=== PATIENT | female | born 1990 | race Caucasian/White ===

== ENCOUNTER → 2017-03-08 | Outpatient (CLI) | payer BC, MEDICAID | LOC: MW.CHOBGYN 16:41 | PROVIDERS: ATTEND Obstetrics & Gynecology | DX: Z34.90 Encounter for supervision of normal pregnancy, unspecified, unspecified trimester (principal) ==

== ENCOUNTER → 2017-03-09 | Outpatient (CLI) | payer BC, MEDICAID | LOC: MW.CHOBGYN 16:26 | PROVIDERS: ATTEND Obstetrics & Gynecology | DX: Z34.90 Encounter for supervision of normal pregnancy, unspecified, unspecified trimester (principal) | CPT/HCPCS: 81003 ==

== ENCOUNTER 2017-03-17 16:08 | Outpatient (CLI) | payer BC, MEDICAID | END 2017-03-17 17:19 | disposition home or self-care (01) | LOC: MW.OBCHECK 16:08 → MW.OB 16:25 → MW.OBCHECK 17:19 | PROVIDERS: ATTEND Obstetrics & Gynecology | DX: Z34.90 Encounter for supervision of normal pregnancy, unspecified, unspecified trimester (principal) | CPT/HCPCS: 59025 ==

== ENCOUNTER 2017-03-19 23:57 | Inpatient (IN) | payer BC, MEDICAID ==
[2017-03-20] MEDS ORDERED: Lidocaine 1% 50 ML MDV INJECT PRN (00:06)
[2017-03-20] MEDS ORDERED: Methylergonovine 0.2 MG/1 ML Amp IM PRN (00:06)
[2017-03-20] MEDS ORDERED: Nalbuphine 10 MG/1 ML Vial IVPUSH PRN (00:06)
[2017-03-20] MEDS ORDERED: Sodium Chloride 0.9% 10 ML Syringe FLUSH PRN (00:06)
[2017-03-20] MEDS ORDERED: Carboprost Tromethamine 250 MCG/1 ML Amp IM PRN (00:06)
[2017-03-20] MEDS ORDERED: Sodium Chloride 0.9% 2.5 ML Syringe FLUSH PRN (00:06)
[2017-03-20] MEDS ORDERED: Butorphanol 1 MG/ML SDV IVPUSH PRN (00:06)
[2017-03-20] MEDS ORDERED: Misoprostol 200 MCG Tab PO PRN (00:06)
[2017-03-20] MEDS ORDERED: Water For Irrigation,Sterile 1,000 ML Container IRR PRN (00:06)
[2017-03-20] MEDS ORDERED: Terbutaline 1 MG/ML SDV SUBCUT PRN (00:06)
[2017-03-20] MEDS ORDERED: Oxytocin/Lactated Ringers 30 UNIT/500 ML BAG IV SCH (00:15)
[2017-03-20] MEDS ORDERED: Misoprostol 25 MCG (1/4 of 100 MCG) Tab PO SCH (00:30)
[2017-03-20] MEDS ORDERED: Misoprostol 25 MCG (1/4 of 100 MCG) Tab VAG SCH (00:30)
[2017-03-20] MEDS: Lactated Ringers 1,000 ML IV SCH ×4 (00:45→22:41)
[2017-03-20] MEDS ORDERED: Misoprostol 25 MCG (1/4 of 100 MCG) Tab PO PRN (04:30)
[2017-03-20] MEDS ORDERED: Misoprostol 25 MCG (1/4 of 100 MCG) Tab VAG PRN (04:30)
--- NOTE | 2017-03-20 09:02 | PCM.LDHP ---
L&D History of Present Illness - General Date of Service: 03/20/17 Admit Problem/Dx: Patient Status Order with Admit Dx/Problem 03/20/17 00:06 Patient Status [ADT] Routine Admission Diagnosis/Problem Admission Diagnosis/Problem Source of Information: Patient History Limitations: Reports: No limitations - History of Present Illness Pain Score: 11 Improves with: Reports: None Worsens with: Reports: None Associated Symptoms: Reports: N - Related Data Allergies/Adverse Reactions: Allergies Allergy/AdvReac Type Severity Reaction Status Date / Time No Known Allergies Allergy Verified 03/17/17 17:08 Past Medical History Genitourinary History: Reports: Renal calculus 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: - Infectious Disease History Infectious Disease History: Reports: None Social & Family History - Family History Family Medical History: Unobtainable - Tobacco Use Smoking Status *Q: Never Smoker Second Hand Smoke Exposure: No - Caffeine Use Caffeine Use: Reports: Coffee - Recreational Drug Use Recreational Drug Use: No H&P Review of Systems - Review of Systems: Review Of Systems: See Below General: Reports: no symptoms HEENT: Reports: no symptoms Pulmonary: Reports: No Symptoms Cardiovascular: Reports: no symptoms Gastrointestinal: Reports: No symptoms Genitourinary: Reports: no symptoms Musculoskeletal: Reports: no symptoms Skin: Reports: no symptoms Psychiatric: Reports: no symptoms Neurological: Reports: No Symptoms Hematologic/Lymphatic: Reports: no symptoms Immunologic: Reports: no symptoms L&D Exam - Exam Exam: See Below - Vital Signs Weight: 105.233 kg - OB Specific Contraction Intensity: Moderate movement: active heart tones: present Presentation: Vertex - Rodríguez Score Rodríguez Score Effacement: 51-70% Rodríguez Score Dilation: 3-4 cm Rodríguez Score 's Station: -1 ,0 - Patient Data Lab Results last 24 hrs: Laboratory Results - last 24 hr 03/20/17 03/20/17 Range/Units 00:43 00:43 WBC 12.39 H (4.0-11.0) K/uL RBC 3.92 L (4.30-5.90) M/uL Hgb 12.2 (12.0-16.0) g/dL Hct 36.0 (36.0-46.0) % MCV 91.8 (80.0-98.0) fL MCH 31.1 (27.0-32.0) pg MCHC 33.9 (31.0-37.0) g/dL RDW Std Deviation 43.9 (28.0-62.0) fl RDW Coeff of Bettie 14 (11.0-15.0) % Plt Count 188 (150-400) K/uL MPV 11.10 (7.40-12.00) fL Blood Type A POSITIVE Antibody Screen NEGATIVE Result Diagrams: 03/20/17 00:43 Problem List Initiated/Reviewed/Updated: Yes Orders Last 24hrs: Active Orders 24 hr Category Date Time Status Patient Status [ADT] Routine ADT 03/20/17 00:06 Active Bedrest Bathroom Privileges [RC] ASDIRECTED Care 03/20/17 00:06 Active Communication Order [RC] ASDIRECTED Care 03/20/17 00:06 Active Communication Order [RC] ASDIRECTED Care 03/20/17 00:06 Active Communication Order [RC] ASDIRECTED Care 03/20/17 00:06 Active Heart Tones [RC] CONTINUOUS Care 03/20/17 00:06 Active Non Stress Test [RC] PER UNIT ROUTINE Care 03/20/17 00:06 Active May Shower [RC] ASDIRECTED Care 03/20/17 00:06 Active Notify Provider [RC] PRN Care 03/20/17 00:06 Active Notify Provider [RC] PRN Care 03/20/17 00:06 Active Notify Provider [RC] PRN Care 03/20/17 00:06 Active Notify Provider [RC] STAT Care 03/20/17 00:06 Active Oxygen Therapy [RC] ASDIRECTED Care 03/20/17 00:06 Active Peripheral IV Care [RC] . DIRECTED Care 03/20/17 00:06 Active Up ad Jodie [RC] ASDIRECTED Care 03/20/17 00:06 Active Vaginal Exam [RC] PRN Care 03/20/17 00:06 Active Vital Signs [RC] PER UNIT ROUTINE Care 03/20/17 00:06 Active Clear Liquid Diet [DIET] Diet 03/20/17 Breakfast Active Butorphanol [Stadol] Med 03/20/17 00:06 Active 1 mg IVPUSH ASDIRECTED PRN Carboprost Tromethamine [Hemabate DS] Med 03/20/17 00:06 Active 250 mcg IM ASDIRECTED PRN Lactated Ringers [Ringers, Lactated] 1,000 ml Med 03/20/17 00:15 Active IV ASDIRECTED Lidocaine 1% [Xylocaine 1%] Med 03/20/17 00:06 Active 50 ml INJECT .ONCE PRN Methylergonovine [Methergine] Med 03/20/17 00:06 Active 0.2 mg IM ASDIRECTED PRN Misoprostol [Cytotec] Med 03/20/17 00:06 Active 200 mcg PO .ONCE PRN Misoprostol [Cytotec] Med 03/20/17 00:30 Active 25 mcg PO .ONCE Misoprostol [Cytotec] Med 03/20/17 04:30 Active 25 mcg PO Q4H PRN Misoprostol [Cytotec] Med 03/20/17 00:30 Active 25 mcg VAG .ONCE Misoprostol [Cytotec] Med 03/20/17 04:30 Active 25 mcg VAG Q4H PRN Nalbuphine [Nubain] Med 03/20/17 00:06 Active 10 mg IVPUSH ASDIRECTED PRN Sodium Chloride 0.9% [Saline Flush] Med 03/20/17 00:06 Active 10 ml FLUSH ASDIRECTED PRN Sodium Chloride 0.9% [Saline Flush] Med 03/20/17 00:06 Active 2.5 ml FLUSH ASDIRECTED PRN Terbutaline [Brethine] Med 03/20/17 00:06 Active 0.25 mg SUBCUT ASDIRECTED PRN Water For Irrigation,Sterile [Sterile Water for Med 03/20/17 00:06 Active Irrigation] 1,000 ml IRR ASDIRECTED PRN Scalp Electrode [WOMSER] Per Unit Routine Oth 03/20/17 00:06 Ordered Medication Administration Instruction [OM.PC] Q3H Oth 03/20/17 00:15 Ordered Peripheral IV Insertion Adult [OM.PC] Routine Oth 03/20/17 00:06 Ordered Resuscitation Status Routine Resus Stat 03/20/17 00:06 Ordered Medication Orders Butorphanol Tartrate (Stadol) 1 mg IVPUSH ASDIRECTED PRN PRN Reason: Pain Last Admin: 03/20/17 08:57 Dose: 1 mg Carboprost Tromethamine (Hemabate Ds) 250 mcg IM ASDIRECTED PRN PRN Reason: Post Hemorrhage Lactated Ringer's (Ringers, Lactated) 1,000 mls @ 150 mls/hr IV ASDIRECTED [facility] Last Admin: 03/20/17 00:45 Dose: 150 mls/hr Lidocaine HCl (Xylocaine 1%) 50 ml INJECT .ONCE PRN PRN Reason: Laceration repair Methylergonovine Maleate (Methergine) 0.2 mg IM ASDIRECTED PRN PRN Reason: Post Hemorrhage Misoprostol (Cytotec) 200 mcg PO .ONCE PRN PRN Reason: Post Hemorrhage Misoprostol (Cytotec) 25 mcg VAG .ONCE [facility] Last Admin: 03/20/17 01:02 Dose: 25 mcg Misoprostol (Cytotec) 25 mcg VAG Q4H PRN PRN Reason: Cervical Ripening Stop: 03/21/17 08:31 Misoprostol (Cytotec) 25 mcg PO .ONCE [facility] Last Admin: 03/20/17 01:01 Dose: 25 mcg Misoprostol (Cytotec) 25 mcg PO Q4H PRN PRN Reason: Cervical Ripening Stop: 03/21/17 08:31 Nalbuphine HCl (Nubain) 10 mg IVPUSH ASDIRECTED PRN PRN Reason: Pain (severe 7-10) Stop: 03/22/17 00:07 Sodium Chloride (Saline Flush) 10 ml FLUSH ASDIRECTED PRN PRN Reason: Keep Vein Open Sodium Chloride (Saline Flush) 2.5 ml FLUSH ASDIRECTED PRN PRN Reason: Keep Vein Open Sterile Water (Sterile Water For Irrigation) 1,000 ml IRR ASDIRECTED PRN PRN Reason: delivery Terbutaline Sulfate (Brethine) 0.25 mg SUBCUT ASDIRECTED PRN PRN Reason: Tacysystole Assessment/Plan Comment:: Term in early labor.
[2017-03-20] MEDS ORDERED: Oxytocin/Lactated Ringers 30 UNIT/500 ML BAG ONE (10:13)
[2017-03-20] MEDS ORDERED: Ropivacaine HCl/PF 100 ML ONE ×2 (10:22→19:09)
[2017-03-20] MEDS ORDERED: fentaNYL 100 MCG/2 ML SDV ONE ×2 (10:22→19:09)
[2017-03-20] MEDS ORDERED: Ropivacaine 0.2% 2 MG/ML 20 ML SDV ONE (10:22)
--- NOTE | 2017-03-20 11:04 | PCM.PREANE ---
Preanesthetic Assessment - Anesthesia/Transfusion/Family Hx Anesthesia History: Prior Anesthesia Without Reaction Family History of Anesthesia Reaction: No - Review of Systems Other: Reports: None - Physical Assessment Height: 5 ft 2 in Weight: 105.233 kg ASA Class: 2 Mental Status: Alert & Oriented x3 Airway Class: Mallampati = 1 Dentition: Reports: Normal Dentition Thyro-Mental Finger Breadths: 3 Mouth Opening Finger Breadths: 3 ROM/Head Extension: Full - Lab Values: Laboratory Last Values WBC 12.39 K/uL (4.0-11.0) H 03/20/17 00:43 RBC 3.92 M/uL (4.30-5.90) L 03/20/17 00:43 Hgb 12.2 g/dL (12.0-16.0) 03/20/17 00:43 Hct 36.0 % (36.0-46.0) 03/20/17 00:43 MCV 91.8 fL (80.0-98.0) 03/20/17 00:43 MCH 31.1 pg (27.0-32.0) 03/20/17 00:43 MCHC 33.9 g/dL (31.0-37.0) 04 00:43 RDW Std Deviation 43.9 fl (28.0-62.0) 03/20/17 00:43 RDW Coeff of Bettie 14 % (11.0-15.0) 03/20/17 00:43 Plt Count 188 K/uL (150-400) 03/20/17 00:43 MPV 11.10 fL (7.40-12.00) 03/20/17 00:43 Blood Type A POSITIVE 03/20/17 00:43 Antibody Screen NEGATIVE 03/20/17 00:43 - Allergies Allergies/Adverse Reactions: Allergies Allergy/AdvReac Type Severity Reaction Status Date / Time No Known Allergies Allergy Verified 03/17/17 17:08 - Blood Blood Available: Yes Product(s) Available: PRBC - Acknowledgements Anesthesia Type Planned: Epidural Pt an Appropriate Candidate for the Planned Anesthesia: Yes Alternatives and Risks of Anesthesia Discussed w Pt/Guardian: Yes Pt/Guardian Understands and Agrees with Anesthesia Plan: Yes PreAnesthesia Questionnaire Genitourinary History: Reports: Renal calculus 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: - Infectious Disease History Infectious Disease History: Reports: None - SUBSTANCE USE Smoking Status *Q: Never Smoker Second Hand Smoke Exposure: No Recreational Drug Use History: No - CURRENT (IN HOUSE) MEDS Current Meds: Current Medications Butorphanol Tartrate (Stadol) 1 mg IVPUSH ASDIRECTED PRN PRN Reason: Pain Last Admin: 03/20/17 08:57 Dose: 1 mg Carboprost Tromethamine (Hemabate Ds) 250 mcg IM ASDIRECTED PRN PRN Reason: Post Hemorrhage Lactated Ringer's (Ringers, Lactated) 1,000 mls @ 150 mls/hr IV ASDIRECTED NAYELI Last Admin: 03/20/17 10:16 Dose: 150 mls/hr Lidocaine HCl (Xylocaine 1%) 50 ml INJECT .ONCE PRN PRN Reason: Laceration repair Methylergonovine Maleate (Methergine) 0.2 mg IM ASDIRECTED PRN PRN Reason: Post Hemorrhage Misoprostol (Cytotec) 200 mcg PO .ONCE PRN PRN Reason: Post Hemorrhage Misoprostol (Cytotec) 25 mcg VAG .ONCE [facility] Last Admin: 03/20/17 01:02 Dose: 25 mcg Misoprostol (Cytotec) 25 mcg VAG Q4H PRN PRN Reason: Cervical Ripening Stop: 03/21/17 08:31 Misoprostol (Cytotec) 25 mcg PO .ONCE [facility] Last Admin: 03/20/17 01:01 Dose: 25 mcg Misoprostol (Cytotec) 25 mcg PO Q4H PRN PRN Reason: Cervical Ripening Stop: 03/21/17 08:31 Nalbuphine HCl (Nubain) 10 mg IVPUSH ASDIRECTED PRN PRN Reason: Pain (severe 7-10) Stop: 03/22/17 00:07 Sodium Chloride (Saline Flush) 10 ml FLUSH ASDIRECTED PRN PRN Reason: Keep Vein Open Sodium Chloride (Saline Flush) 2.5 ml FLUSH ASDIRECTED PRN PRN Reason: Keep Vein Open Sterile Water (Sterile Water For Irrigation) 1,000 ml IRR ASDIRECTED PRN PRN Reason: delivery Terbutaline Sulfate (Brethine) 0.25 mg SUBCUT ASDIRECTED PRN PRN Reason: Tacysystole Discontinued Medications Fentanyl (Sublimaze) Confirm Administered Dose 200 mcg .ROUTE .STK-MED ONE Stop: 03/20/17 10:23 Oxytocin/Lactated Ringer's (Pitocin In Lr 30 Units/500 Ml) 30 unit in 500 mls @ 500 mls/hr IV TITRATE NAYELI PRN Reason: 500 MUNITS/MIN Stop: 03/20/17 01:14 Oxytocin/Lactated Ringer's (Pitocin In Lr 30 Units/500 Ml) Confirm Administered Dose 30 unit in 500 mls @ as directed .ROUTE .STK-MED ONE Stop: 03/20/17 10:14 Ropivacaine (Naropin 0.2%) Confirm Administered Dose 100 mls @ as directed .ROUTE .STK-MED ONE Stop: 03/20/17 10:23 Ropivacaine (Naropin 0.2%) Confirm Administered Dose 20 ml .ROUTE .STK-MED ONE Stop: 03/20/17 10:23
[2017-03-20] MEDS ORDERED: Bupivacaine 0.5% 10 ML SDV ONE (22:41)
[2017-03-20] MEDS ORDERED: oxyCODONE 5 MG Tab PO PRN (23:42)
[2017-03-20] MEDS ORDERED: Lanolin 100% Cream 7 GM Tube TOP PRN (23:42)
[2017-03-20] MEDS ORDERED: Bisacodyl 10 MG Supp RECTAL PRN (23:42)
[2017-03-20] MEDS ORDERED: Benzocaine/Menthol 20%-0.5% Spray 78 GM Cannister TOP PRN (23:42)
[2017-03-20] MEDS ORDERED: Ibuprofen 400 MG Tab PO PRN (23:42)
[2017-03-20] MEDS ORDERED: Ibuprofen 800 MG Tab PO PRN (23:42)
[2017-03-20] MEDS ORDERED: Witch Hazel Medicated Pads 40/Jar TOP PRN (23:42)
[2017-03-20] MEDS ORDERED: Acetaminophen 500 MG Tab PO PRN ×2 (23:42)
[2017-03-20] MEDS ORDERED: Docusate Sodium 100 MG Cap PO PRN (23:42)
[2017-03-21] MEDS ORDERED: Furosemide 40 MG/4 ML VIAL IVPUSH ONE (00:02)
[2017-03-21 07:59] VITALS: BP 134/77
--- NOTE | 2017-03-21 11:22 | PCM.PNPP ---
- General Info Date of Service: 03/21/17 Functional Status: Reports: pain controlled - Review of Systems General: Reports: No Symptoms HEENT: Reports: no symptoms Pulmonary: Reports: no symptoms Cardiovascular: Reports: No Symptoms Gastrointestinal: Reports: No symptoms Genitourinary: Reports: no symptoms Musculoskeletal: Reports: no symptoms Skin: Reports: no symptoms Neurological: Reports: No Symptoms Psychiatric: Reports: no symptoms - General Info Date of Service: 03/21/17 - Patient Data Vital Signs - most recent: Last Vital Signs Temp 36.5 C 03/21/17 10:55 Pulse 115 H 03/21/17 07:58 Resp 18 03/21/17 07:58 BP 134/77 03/21/17 07:58 Pulse Ox 96 03/21/17 05:17 Weight - most recent: 105.233 kg I&O - last 24 hours: Intake & Output 03/20/17 03/21/17 03/21/17 22:59 06:59 14:59 Output Total 1925 Balance -1925 Lab Results - last 24 hrs: Laboratory Results - last 24 hr 03/21/17 Range/Units 06:00 Hgb 10.8 L (12.0-16.0) g/dL Hct 31.9 L (36.0-46.0) % Med Orders - Current: Current Medications Acetaminophen (Tylenol Extra Strength) 500 mg PO Q4H PRN PRN Reason: Pain Acetaminophen (Tylenol Extra Strength) 1,000 mg PO Q4H PRN PRN Reason: Pain Benzocaine/Menthol (Dermoplast Pain Relief 20%-0.5% [place]) 0 gm TOP ASDIRECTED PRN PRN Reason: Perineal Comfort Measure Last Admin: 03/21/17 08:18 Dose: 1 can Bisacodyl (Dulcolax) 10 mg RECTAL .ONCE PRN PRN Reason: Constipation Butorphanol Tartrate (Stadol) 1 mg IVPUSH ASDIRECTED PRN PRN Reason: Pain Last Admin: 03/20/17 08:57 Dose: 1 mg Carboprost Tromethamine (Hemabate Ds) 250 mcg IM ASDIRECTED PRN PRN Reason: Post Hemorrhage Docusate Sodium (Colace) 100 mg PO BID PRN PRN Reason: Constipation Emollient Ointment (Lansinoh Hpa) 0 gm TOP ASDIRECTED PRN PRN Reason: Sore Nipples Lactated Ringer's (Ringers, Lactated) 1,000 mls @ 150 mls/hr IV ASDIRECTED NAYELI Last Admin: 03/20/17 22:41 Dose: 150 mls/hr Ibuprofen (Motrin) 400 mg PO Q4H PRN PRN Reason: Pain Ibuprofen (Motrin) 800 mg PO Q6H PRN PRN Reason: Pain Last Admin: 03/21/17 08:11 Dose: 800 mg Lidocaine HCl (Xylocaine 1%) 50 ml INJECT .ONCE PRN PRN Reason: Laceration repair Methylergonovine Maleate (Methergine) 0.2 mg IM ASDIRECTED PRN PRN Reason: Post Hemorrhage Misoprostol (Cytotec) 200 mcg PO .ONCE PRN PRN Reason: Post Hemorrhage Misoprostol (Cytotec) 25 mcg VAG .ONCE [facility] Last Admin: 03/20/17 01:02 Dose: 25 mcg Misoprostol (Cytotec) 25 mcg PO .ONCE [facility] Last Admin: 03/20/17 01:01 Dose: 25 mcg Nalbuphine HCl (Nubain) 10 mg IVPUSH ASDIRECTED PRN PRN Reason: Pain (severe 7-10) Stop: 03/22/17 00:07 Oxycodone HCl (Oxycodone) 5 mg PO Q2H PRN PRN Reason: Pain Sodium Chloride (Saline Flush) 10 ml FLUSH ASDIRECTED PRN PRN Reason: Keep Vein Open Sodium Chloride (Saline Flush) 2.5 ml FLUSH ASDIRECTED PRN PRN Reason: Keep Vein Open Sterile Water (Sterile Water For Irrigation) 1,000 ml IRR ASDIRECTED PRN PRN Reason: delivery Last Admin: 03/20/17 23:52 Dose: 1,000 ml Terbutaline Sulfate (Brethine) 0.25 mg SUBCUT ASDIRECTED PRN PRN Reason: Tacysystole [place] (Tucks) 1 pad TOP ASDIRECTED PRN PRN Reason: comfort care Discontinued Medications Bupivacaine HCl (Sensorcaine-Mpf 0.5%) Confirm Administered Dose 20 ml .ROUTE .STK-MED ONE Stop: 03/20/17 22:42 Fentanyl (Sublimaze) Confirm Administered Dose 200 mcg .ROUTE .STK-MED ONE Stop: 03/20/17 10:23 Fentanyl (Sublimaze) Confirm Administered Dose 200 mcg .ROUTE .STK-MED ONE Stop: 03/20/17 19:10 Furosemide (Lasix) 40 mg IVPUSH NOW ONE Stop: 03/21/17 00:03 Last Admin: 03/21/17 00:37 Dose: 40 mg Oxytocin/Lactated Ringer's (Pitocin In Lr 30 Units/500 Ml) 30 unit in 500 mls @ 500 mls/hr IV TITRATE NAYELI PRN Reason: 500 MUNITS/MIN Stop: 03/20/17 01:14 Last Infusion: 03/20/17 20:08 Dose: 6 munits/min, 6 mls/hr Oxytocin/Lactated Ringer's (Pitocin In Lr 30 Units/500 Ml) Confirm Administered Dose 30 unit in 500 mls @ as directed .ROUTE .STK-MED ONE Stop: 03/20/17 10:14 Ropivacaine (Naropin 0.2%) Confirm Administered Dose 100 mls @ as directed .ROUTE .STK-MED ONE Stop: 03/20/17 10:23 Ropivacaine (Naropin 0.2%) Confirm Administered Dose 100 mls @ as directed .ROUTE .STK-MED ONE Stop: 03/20/17 19:10 Misoprostol (Cytotec) 25 mcg VAG Q4H PRN PRN Reason: Cervical Ripening Stop: 03/21/17 08:31 Misoprostol (Cytotec) 25 mcg PO Q4H PRN PRN Reason: Cervical Ripening Stop: 03/21/17 08:31 Ropivacaine (Naropin 0.2%) Confirm Administered Dose 20 ml .ROUTE .STK-MED ONE Stop: 03/20/17 10:23 - Interaction Infant Feeding: Attempted ; Nursed Fair/Poor Support Person: Significant Other - Recovery Exam Fundal Tone: Firm Fundal Level: At Umbilicus Fundal Placement: Midline Lochia Amount: Scant Lochia Color: Rubra/Red Perineum Description: Edematous Episiotomy/Laceration: Approximated Bladder Status: Indwelling Catheter in Place - Exam General: alert, oriented HEENT: Pupils equal Neck: supple Lungs: Clear to auscultation, Normal respiratory effort Cardiovascular: Regular Rate, Regular Rhythm Abdomen: bowel sounds present, soft, no tenderness, no distension Extremities: no edema Skin: warm, dry, intact Wound/Incisions: healing well Neurological: no new focal deficit Psy/Mental Status: alert, normal affect, normal mood - Problem List Review Problem List Initiated/Reviewed/Updated: Yes - My Orders Last 24 Hours: My Active Orders 03/20/17 23:42 Patient Status [ADT] Routine May Shower [RC] ASDIRECTED Vital Signs [RC] PER UNIT ROUTINE Acetaminophen [Tylenol Extra Strength] 1,000 mg PO Q4H PRN Acetaminophen [Tylenol Extra Strength] 500 mg PO Q4H PRN Benzocaine/Menthol [Dermoplast Pain Relief 20%-0.5% [place]] 0 gm TOP ASDIRECTED PRN Bisacodyl [Dulcolax] 10 mg RECTAL .ONCE PRN Docusate Sodium [Colace] 100 mg PO BID PRN Ibuprofen [Motrin] 400 mg PO Q4H PRN Ibuprofen [Motrin] 800 mg PO Q6H PRN Lanolin [Lansinoh HPA] See Dose Instructions TOP ASDIRECTED PRN [place] [Tucks] 1 pad TOP ASDIRECTED PRN oxyCODONE 5 mg PO Q2H PRN Assess Lochia [WOMSER] Per Unit Routine Assess Uterine Involution [WOMSER] Per Unit Routine Peripheral IV Discontinue [OM.PC] Routine 03/20/17 23:59 Armando Catheter Insertion [Insert Urinary Catheter] [OM.PC] Q24H 03/21/17 Breakfast Regular Diet [DIET] - Assessment Assessment:: S/P doing well - Plan Plan:: Term in early labor.
--- NOTE | 2017-03-21 12:37 | PCM48HPAN ---
Post Anesthesia Note - EVALUATION WITHIN 48HRS OF ANESTHETIC Vital Signs in Normal Range: Yes Patient Participated in Evaluation: Yes Respiratory Function Stable: Yes Airway Patent: Yes Cardiovascular Function Stable: Yes Hydration Status Stable: Yes Pain Control Satisfactory: Yes Nausea and Vomiting Control Satisfactory: Yes Mental Status Recovered: Yes
--- NOTE | 2017-03-24 06:33 | OR ---
SURGEON: Derik Matos MD DATE OF PROCEDURE: DELIVERY NOTE: Ms. Hamilton is a 27-year-old patient, nulliparous. She is followed in the clinic primarily by me. She transferred her care to us late in her . I saw the patient in the office 2 days ago. The patient does have decreased movement, however she has a reactive NST and normal biophysical profile on that day, however because she is term, she is admitted for induction today. At the time she was induced with Cytotec and Pitocin and at the time of admission, she required one dose of Cytotec 25 mg po and 25 mg vaginally. The patient progressed to 3 to 4 cm, 90 vertex with bulging bag of water. She had artificial rupture of the membrane by me and it was a clear fluid. The patient requires Pitocin augmentation to augment her labor and she has labor analgesia to augment her labor. The patient has progressed nicely and she became complete, complete 0, +1 She pushed in excess of two hours. She started having tachycardia and there was a loss of variability. I assessed the patient and I assessed her and her pelvis is roomy and she was in semi OA position and I felt that the vacuum extraction is probably achievable at this time. I discussed with the parent and the patient and they consented for that. Kiwi vacuum extraction was performed and after 3 pulls while the patient is pushing, the fetus was delivered. Dr. Fermin Friedman was present at the time of the delivery. When the fetus was delivered, it was rather lethargic after we clamped the cord and handed to the family preservation officer for resuscitation. The 's heart rate was essentially over 100 through the entire process and required some oxygen and pinking and it was pinked immediately after that. However, the fetus was rather lethargic and hypertonic, but is responding and improving as the time go. For the score and weight, please refer to the family preservation officer note. The placenta was delivered spontaneous complete and intact. There was a small 1st degree laceration and that was repaired without any problem with 3-0 Vicryl. Estimated blood loss was 250 mL. There was no complication. CIARAN / COLIN /[id number]
== END 2017-03-21 11:45 | disposition home or self-care (01) | DRG 560 ==
LOC: MW.OBCHECK 23:57 → MW.OB 23:59 → MW.OBCHECK 03-20 00:06 → MW.OB 03-20 00:06 → OBSVTOIN 03-20 23:09 → MW.OB 03-21 02:41
PROVIDERS: ADMIT Obstetrics & Gynecology; ATTEND Obstetrics & Gynecology
PROC: 10D07Z6 Extraction of Products of Conception, Vacuum, Via Natural or Artificial Opening (ICD-10-PCS; principal; 2017-03-20)
PROC: 3E0P7GC Introduction of Other Therapeutic Substance into Female Reproductive, Via Natural or Artificial Opening (ICD-10-PCS; 2017-03-20)
PROC: 3E033VJ Introduction of Other Hormone into Peripheral Vein, Percutaneous Approach (ICD-10-PCS; 2017-03-20)
PROC: 10907ZC Drainage of Amniotic Fluid, Therapeutic from Products of Conception, Via Natural or Artificial Opening (ICD-10-PCS; 2017-03-20)
PROC: 0HQ9XZZ Repair Perineum Skin, External Approach (ICD-10-PCS; 2017-03-20)
DX: O36.8130 Decreased fetal movements, third trimester, not applicable or unspecified (principal); O70.0 First degree perineal laceration during delivery; Z3A.39 39 weeks gestation of pregnancy; Z37.0 Single live birth
CPT/HCPCS: 01967; 36415; 59025; 85014; 85018; 85027; 86850; 86900; 86901; A9270-GY; J0595; J1940; J7120